=== PATIENT | female | born 2000 | race Caucasian/White ===

== ENCOUNTER 2023-02-24 14:49 | Emergency (ER) | payer MEDICAID ==
[~2023-02-24] VITALS: Ht 165.1 cm; Wt 73.9 kg
[2023-02-24 14:56] VITALS: BP 118/74; TEMP 98.4; O2SAT 10
== END 2023-02-24 15:20 | disposition home or self-care (01) ==
LOC: ER 15:03
DX: T19.2XXA Foreign body in vulva and vagina, initial encounter (principal); W44.8XXA Other foreign body entering into or through a natural orifice, initial encounter